=== PATIENT | male | born 1960 | race Caucasian/White ===

== ENCOUNTER 2018-10-17 13:53 | Observation (INO) | payer MEDICAID, SELFPAY ==
[2018-10-17] VITALS (7 sets, daily range): BP systolic 115–133; BP diastolic 70–80; PULSE 61–69; RESP 15–18; TEMP 36.5–36.7; O2SAT 94–98; BMI 30.7
--- NOTE | 2018-10-17 15:18 | CT_ITS ---
STUDY: CTA HEAD AND NECK WITH CONTRAST REASON FOR EXAM: Male, 57 years old. Left neck pain and dizziness RADIATION DOSAGE (If Supplied By Facility): CTDIvol = ( 30.09 ) mGy, DLP = ( 1589.89 ) mGycm TECHNIQUE: CT angiography was performed with a multi-detector CT scanner. Data acquisition was obtained from the skull base through the vertex following intravenous administration of 100 IV Isovue 370. MIP images were reconstructed from the axial data set. Post-processing of the angiographic images was performed, with multiplanar reformation and 3D reconstruction. Individualized dose optimization techniques were used for this CT. COMPARISON: No relevant priors. FINDINGS: Normal bilateral petrous carotid arteries. Normal right cavernous carotid artery with a normal supraclinoid bifurcation. Normal left cavernous carotid artery with a normal supraclinoid bifurcation. Normal right A1 segments of the anterior cerebral artery. Nonvisualized left A1 segments of the anterior cerebral artery possibly normal variant. Normal intact anterior communicating artery (ACOM). Normal bilateral A2 segments of the anterior cerebral arteries. Normal right M1 and M2 segments of the middle cerebral arteries, with a normal M1 bifurcation. Normal left M1 and M2 segments of the middle cerebral arteries, with a normal M1 bifurcation. Normal right posterior communicating artery (PCOM). Left posterior communicating artery not visualized consistent with normal variant Normal bilateral vertebral arteries. Normal basilar artery with a normal basilar bifurcation. The visualized bilateral superior cerebellar (SCA) arteries are normal. Normal bilateral P1, P2 and visualized P3 segments of the posterior cerebral arteries. There is no demonstrated aneurysm of the [place] of [place]. There is no demonstrated abnormality of the visualized brain. AORTIC ARCH: Normal visualized aortic arch. Normal origins of the brachiocephalic, left common carotid, and left subclavian arteries. RIGHT CAROTID ARTERIES: Normal right common carotid artery (CCA). Normal right common carotid bulb. Normal origin of the right internal carotid (ICA) artery without a hemodynamically significant stenosis. Normal visualized cervical portion of the right internal carotid artery. Normal origin of the right external carotid artery (ECA). LEFT CAROTID ARTERIES: Normal left common carotid artery (CCA). Normal left common carotid bulb. Normal origin of the left internal carotid (ICA) artery without a hemodynamically significant stenosis. Normal visualized cervical portion of the left internal carotid artery. Normal origin of the left external carotid artery (ECA). VERTEBRAL ARTERIES: Normal bilateral vertebral arteries. CT/CTA Head AND Neck W/ Contrast IMPRESSION: Normal CTA Head and neck with contrast. Electronically Signed: Eladio Lau MD at 16:53 EDT , Service support ,
--- NOTE | 2018-10-17 15:18 | EKG12_ITS ---
Test Reason : NEURO SYM Blood Pressure : / mmHG Vent. Rate : 060 BPM Atrial Rate : 060 BPM P-R Int : 100 ms QRS Dur : 078 ms QT Int : 382 ms P-R-T Axes : 034 042 050 degrees QTc Int : 382 ms Sinus rhythm with short DC Otherwise normal ECG Confirmed by SHAHAB SILVA, KRISTIN ([id number]), metal tile setter ORESTES RETANA ([id number]) on 10/19/2018 1:37:07 PM Referred By: MATTHEW/MALU Confirmed By:KRISTIN GUDINO MD
--- NOTE | 2018-10-17 15:21 | ED.DCSUM_ITS ---
- ER Visit Summary Date of Service: 10/17/18 Chief Complaint: Dizziness History of Present Illness: The patient is a 57 M with dizziness that started earlier today while he was driving. He felt like things were out of focus. He attributed it to the rain, but when he went home, his symptoms persisted. He was also complaining of some left side neck pain. These are new symptoms for him. He went to urgent care. They felt that he had an irregular heartbeat which is also new, and they referred him to the ED. The patient works with plaster and works on ceilings. Physical Examination: Afebrile and vital signs unremarkable. Alert and oriented. No acute distress. Sitting comfortably. HEENT exam unremarkable. Cranial nerves grossly intact. Heart regular rate and rhythm. Lungs clear. Skin appears normal. Moves all extremities. Good strength and sensation. Normal cerebellar testing, NIH stroke scale is 0. Test Results: EKG, CT brain, CTA head and neck, chest x-ray, labs pending. Emergency Department Course and Treatment: Patient symptoms have currently subsided. NIH stroke scale is 0. There is concern for stroke or vascular or cardiac pathology. Work-up as above. He has an NIH of 0 and there is no indication for team or TPA at this point. Will monitor. EKG showed sinus rhythm. He had no dysrhythmias here. Troponin was normal. CTA head and neck showed no acute abnormalities. Chest x-ray normal. CBC, BMP, coags unremarkable. Patient had no new or worsening symptoms. He was discussed with the hospitalist and will be observed for further care. Treatment Plan: As above Disposition: Observation PCU Impression: 1. Dizziness This note was generated with [employer] dictation software. It may contain incorrect words, spelling, and punctuation that were not noted in review of the chart prior to signing ED Disposition - Plan for ED Patient: Referrals: Ellie Huddleston MD [STAFF PHYSICIAN] -
--- NOTE | 2018-10-17 15:31 | RAD_ITS ---
STUDY: X-RAY CHEST REASON FOR EXAM: Male, 57 years old. Dizziness and neck pain TECHNIQUE: 2 AP portable views COMPARISON: 2015 FINDINGS: The lungs are clear and expanded. There is no demonstrated pleural abnormality. Normal size heart. Normal mediastinum and brittni. Normal visualized pulmonary arteries. Normal visualized aortic arch and descending thoracic aorta. Normal visualized thoracic spine. Normal visualized ribs, clavicles, and shoulders. There is no demonstrated abnormality of the visualized soft tissue structures of the upper abdomen. RAD/Chest 1 View IMPRESSION: Normal x-ray examination of the chest. Electronically Signed: Iftikhar Orr MD at 15:45 EDT , Service support ,
[2018-10-17 15:41] LABS: Absolute Lymphocyte Count 2.31 X10^3/uL (0.83-4.51); Absolute Neutrophil Count 2.9 X10^3/uL (2.0-7.7); Basophil# 0.03 X10^3/uL; Basophil% 0.5 % (0-1); Eosinophil# 0.13 X10^3/uL; Eosinophils% 2.2 % (0-5); Hematocrit 44.8 % (40-54); Hemoglobin 15.1 g/dL (13.0-16.5); Lymphocyte # 2.31 X10^3/ul (4.0); Lymphocyte % 38.8 % (19-41); Mean Corp Hgb Conc 33.7 g/dL (32-36); Mean Corpuscular Hgb 29.4 pg (27.0-32.0); Mean Corpuscular Volume 87.3 fL (80-94); Mean Platelet Vol. 10.9 fl (6.2-12.0); Monocyte# 0.59 X10^3/uL; Monocyte% 9.9 % (0-10); NRBC Flagged by Analyzer 0 % (0-5); Neutrophil # 2.89 X10^3/uL (2.7-7.7); Neutrophil % 48.4 % (47-70); Platelet Count 216 K/mm3 (150-450); RBC Distribution Width CV 12.7 % (11.6-14.6); RBC Distribution Width SD 40.6 fl (35.1-43.9); Red Blood Count 5.13 M/mm3 (4.6-6.2)
[2018-10-17 15:47] LABS: Prothrombin Time (Protime)PT. 13.4 SECONDS (11.7-14.9)
[2018-10-17 15:57] LABS: Anion Gap 8 (5-15); BUN 18 mg/dL (7-18); BUN/Creat Ratio 16.5 RATIO (10-20); Calcium,Total 9.1 mg/dL (8.5-10.1); Chloride 106 mmol/L (98-107); Creatinine, Serum 1.09 mg/dL (0.70-1.30); EST Glomerular Filtration Rate 74 mL/min (>60); Est Glom Filt Rate - Afr Amer 90 mL/min (>60); Glucose 88 mg/dL (74-106); Potassium 4.3 mmol/L (3.5-5.1); Sodium Level 141 mmol/L (136-145)
--- NOTE | 2018-10-17 17:19 | NURSING ---
DR SARI RODRIGUEZ
--- NOTE | 2018-10-17 17:25 | NURSING ---
PCU OBS DIZZINESS ASHELFAH
--- NOTE | 2018-10-17 17:28 | PCM.HP.STD ---
Problem List (1) Dizziness Status: Acute (2) Blurry vision, bilateral Status: Acute (3) GERD (gastroesophageal reflux disease) Status: Chronic History of Present Illness Date of Admission: 10/17/18 Chief Complaint: Dizziness, blurry vision. The patient is a 57 year old M with no significant past medical history presented to the emergency room because of dizziness and blurry vision. His symptoms started around 11 AM this morning when he was driving with blurry vision involving both eyes, things were not clear, initially resolved with blinking, associated with dizziness and headache, symptoms was intermittent, comes and goes and without aggravating or relieving factors. The whole episode lasted for about couple of hours with intermittent blurry vision and dizziness. Later, he complained of neck pain, left-sided, dull aching pain, nonradiating and resolved now. He denied chest pain, shortness of breath, palpitation, syncope or presyncope. He denied facial numbness or tingling. He denied slurred speech. He denied focal arm or leg weakness. He went to urgent care and he was recommended to come to the emergency department. He was informed at the urgent care that he has regular heartbeats. No EKG was done at that time. In the emergency department, his vital signs were stable. His NIH stroke scale was 0. His routine blood work was unremarkable. EKG revealed normal sinus rhythm, normal NC interval, normal QRS, normal QTC, no acute ischemic changes or cardiac arrhythmias. Troponin is negative. Chest x-ray showed no acute findings. CTA of the head and neck showed no evidence of hemodynamically significant vascular disease or stenosis. He is being admitted for blurry vision/dizziness for evaluation. Past Medical History Past Medical History (Chronic Problems): Chronic Problems GERD (gastroesophageal reflux disease) (Chronic) Allergies No Known Allergies Allergy (Verified 10/17/18 15:54) Home Medications: Ambulatory Orders Medication Instructions Recorded NK 10/17/18 Surgical History: no surgical history Psychiatric History: No pertinent psych hx Lives: Spouse/ Significant Other Smoking Status: Current every day smoker Tobacco Use: Cigarettes Alcohol: None Drugs: None - *Family History Maternal History Items: - - No family history of hypertension, diabetes, stroke or CAD. Paternal History Items: No pertinent history Review of Systems Constitutional: Denies: Anorexia, Chills, Fever, Weakness Eyes: Reports: Blurred vision. Denies: Double vision, Drainage, Redness HEENT: Reports: Ear Pain, Head Aches. Denies: Difficulty Hearing, Eye Pain, Nasal Congestion, Sore Throat Cardiovascular: Reports: Light Headedness. Denies: Chest Pain, Chest Pressure, Edema, Heaviness, Palpitations, Syncope Respiratory: Denies: Cough, Pleuritic Pain, Shortness of Breath, Sputum production, Wheezing Gastrointestinal: Denies: Abdominal Pain, Constipation, Diarrhea, Nausea, Vomiting Genitourinary: Denies: Dysuria, Frequency, Hematuria Musculoskeletal: Denies: Arm Pain, Back Pain, Foot Pain Skin: Denies: Dryness, Rash Neurological: Reports: Headaches. Denies: Balance problems, Double vision, Change in Speech, Slurred speech, Confusion, Incoordination, Numbness, Tingling Psychiatric: Denies: Anxiety, Depression Endocrine: Denies: Change in Body Habitus, Polydipsia, Polyuria VTE Information - Inpt Only VTE Present on Admission: No VTE Mechan Device Prophylaxis: None VTE Pharm Prophylaxis ordered?: No Patient Problems: Active and Suspected Problems Dizziness (Acute) Blurry vision, bilateral (Acute) - Physical Exam General: Alert, Oriented x3, Cooperative, No apparent distress HEENT: Atraumatic, PERRLA, EOMI, Normocephalic Oral: Moist Mucosa, No Gingival or Mucosal Lesions/ Ulcerations Neck: Supple, No JVD, Negative Carotid Bruits, Trachea Midline, Thyroid Normal Size and Texture Lungs: Clear to auscultation, Normal air movement, No rhonchi, No wheeze, No rales Cardiovascular: Regular rate, Regular Rhythm, Normal S1, Normal S2, PMI Normal Abdomen: Bowel Sounds Present, Soft, Non Tender, Non-Distended, No Hepato-splenomegaly Extremities: No clubbing, No cyanosis, No edema Skin: No rashes, No breakdown Lymphatic: No Cervical, Supraclavicular, or Inguinal Adenopathy Neurological: Cranial nerves II-XII grossly intact, Motor Exam 5/5 strength throughout Psych/Mental Status: Normal Affect, Appropriate, Alert and oriented to time, place, person, mood and affect Vital Signs Temp Pulse Resp BP Pulse Ox 98.1 F 69 17 133/75 H 97 10/17/18 13:54 10/17/18 13:54 10/17/18 15:53 10/17/18 15:53 10/17/18 15:53 Oxygen Delivery Method Room Air Weight: 220 lb Body Mass Index (BMI) 30.7 Laboratory Tests Past 24 Hrs 10/17/18 10/17/18 10/17/18 13:30 13:30 13:30 WBC 6.0 RBC 5.13 Hgb 15.1 Hct 44.8 MCV 87.3 MCH 29.4 MCHC 33.7 RDW Std Deviation 40.6 RDW Coeff of [place] 12.7 Plt Count 216 MPV 10.9 Immature Gran % (Auto) 0.200 Neut % (Auto) 48.4 Lymph % (Auto) 38.8 [place] % (Auto) 9.9 Eos % (Auto) 2.2 Baso % (Auto) 0.5 Absolute Neuts (auto) 2.9 Absolute Lymphs (auto) 2.31 Absolute Nucleated RBC 0.00 Nucleated RBC % 0 PT 13.4 INR 1.0 APTT 32.0 Sodium 141 Potassium 4.3 Chloride 106 Carbon Dioxide 27.0 Anion Gap 8 BUN 18 Creatinine 1.09 Estim Creat Clear Calc 80.60 Est GFR (MDRD) Af Amer 90 Est GFR (MDRD) Non-Af 74 BUN/Creatinine Ratio 16.5 Glucose 88 Calcium 9.1 Troponin I < 0.015 Clinical Impression(s) from Imaging Studies Head/Neck CTA 10/17/18 15:18 IMPRESSION: Normal CTA Head and neck with contrast. Electronically Signed: Eladio Lau MD at 16:53 EDT , Service support , Chest X-Ray 10/17/18 15:31 IMPRESSION: Normal x-ray examination of the chest. Electronically Signed: Iftikhar Orr MD at 15:45 EDT , Service support , Assessment/Plan All Active Problems Dizziness (Acute) Blurry vision, bilateral (Acute) This is a 57 years old male patient presented to the emergency room because of dizziness and blurry vision and he is being admitted for evaluation for probable TIA versus acute stroke. #1 blurry vision/dizziness: Symptoms are not typical for TIA or stroke. Symptoms has been intermittent and recurrent, associated with headache. Risk factors are only smoking. No family history of stroke. His vital signs are stable. Routine blood work was unremarkable. CTA head and neck was unremarkable as above. EKG reviewed, unremarkable. His NIH stroke scale was 0. No focal deficit on physical exam. Plan: Admit to PCU for observation, cardiac monitoring, NIH stroke scale, start baby aspirin, fasting lipid profile, MRI brain, 2D echocardiogram. #2 GERD: Patient completed 1 week of omeprazole which was started recently. At this time, he denies any more symptoms. #3 DVT prophylaxis: Low risk patient, no prophylaxis indicated. This note was generated with [employer] dictation software. It may contain incorrect words, spelling, and punctuation that were not noted in checking the note before signing. Code Visit OBSV E&M: 81614 Initial observation care L2
--- NOTE | 2018-10-17 17:33 | NURSING ---
112 DIZZINESS, BLURRY VISION ASHELFAH
--- NOTE | 2018-10-17 18:15 | ECHOCS_ITS ---
Reason For Study: TIA/CVA Procedure This was a 2D Doppler, Color Flow transthoracic echocardiogram. Exam performed portable in patient room. Left Ventricle Normal LV size. Left ventricular systolic function is normal. The estimated ejection fraction is 60 %. Stage 1 diastolic dysfunction. No regional wall motion abnormalities noted. Right Ventricle Normal RV size. Normal systolic function. Atria Normal left atrium. Normal right atrium. Bubble contrast study negative for right to left interatrial shunt. Mitral Valve Normal mitral valve. Tricuspid Valve Normal tricuspid valve. Aortic Valve The aortic valve is not well visualized. Pulmonic Valve Normal pulmonic valve. Great Vessels Normal aortic root. The pulmonary artery is normal size. Normal inferior vena cava. Pericardium/Pleural No pericardial effusion. Medication Performed a rapid injection of agitated mix of 9 cc saline and 1cc air to assess for atrial septal defect. Diluted definity 4ml given slow IV push to enhance endocardial definition. MMode/2D Measurements & Calculations LVIDd: 5.2 cm IVSd: 0.83 cm Ao root diam: 3.7 cm LVIDs: 3.4 cm LVPWd: 0.93 cm RVDd: 3.6 cm FS: 33.4 % LAV(MOD-bp): 43.4 ml LVAd ap4: 33.0 cm2 SV(MOD-sp4): 63.1 ml LAV(MOD-bp) Indexed: 19.8 ml/m2 EDV(MOD-sp4): 112.6 ml LAV(MOD-sp2): 59.7 ml EDV(sp4-el): 118.4 ml LAV(MOD-sp4): 27.2 ml LVAs ap4: 19.9 cm2 ESV(MOD-sp4): 49.5 ml ESV(sp4-el): 50.0 ml EF(MOD-sp4): 56.0 % EF(sp4-el): 57.8 % SV(sp4-el): 68.4 ml LA A4 area: 12.3 cm2 LA dimension(2D): 3.5 cm RA A4 area: 14.3 cm2 Time Measurements MV dec time: 0.24 sec Doppler Measurements & Calculations MV E max marvin: 61.2 cm/sec Lat Peak E' Marvin: 12.2 cm/sec Med Peak E' Marvin: 9.4 cm/sec MV A max marvin: 70.1 cm/sec E/E' lat: 5.0 E/E' med: 6.5 MV E/A: 0.87 Ao V2 max: 112.8 cm/sec LV V1 max: 98.4 cm/sec PA V2 max: 81.6 cm/sec Ao max P.1 mmHg LV V1 max P.9 mmHg Interpretation Summary Normal LV size. Left ventricular systolic function is normal. The estimated ejection fraction is 60 %. Stage 1 diastolic dysfunction. Contrast injection was performed. Ordering Physician: Yessenia Whaley Referring Physician: BARRIE GOODMAN Performed By: María Jacobsen RDCS
--- NOTE | 2018-10-17 18:15 | MRI_ITS ---
HISTORY: Dizziness. Left neck pain. Visual changes. Headache.VERTIGOdizzy, blurred vision , puentes, left neck pain today EXAMINATION: MR Brain W/O Contrast TECHNIQUE: Multiplanar and multisequence MR images of the brain were obtained without gadolinium. IV Contrast dosage and agent: None. COMPARISON: CTA and CT head seen date. FINDINGS: PARANASAL SINUSES AND MASTOID AIR CELLS: Mild mucosal thickening bilateral ethmoid air cells and left maxillary sinus. CALVARIUM: Unremarkable. INTRACRANIAL HEMORRHAGE: No evidence of intracranial hemorrhage. BRAIN PARENCHYMA: No acute infarct. Cerebrum, cerebellum and brainstem are unremarkable. Normal sella turcica, pituitary gland, infundibular stalk, optic chiasm and hypothalamus. The internal auditory canals are patent. No mass effect or midline shift. CSF SPACES: Appropriate for age. There is no hydrocephalus. Patent basal cisterns. VASCULAR SYSTEM: Normal flow voids in the major intracranial circulation. ORBITS: Both globes, extraocular muscles, optic nerves and retrobulbar fat appear unremarkable. MRI/Brain without Contrast IMPRESSION: Negative MRI Brain without contrast. at 2245 Reported and signed by: Fortunato Carpenter MD Electronically Signed: Fortunato Carpenter, at 22:44 EDT Tel , Service support ,
[2018-10-17] MEDS: 0.9% Normal Saline 1,000 ML 100 ML IV (19:01)
[2018-10-18 02:50] VITALS: BP 110/61; PULSE 66; RESP 16; TEMP 36.6; O2SAT 94
[2018-10-18 03:06] VITALS: PULSE 62
[2018-10-18 06:00] VITALS: BP 109/62; PULSE 59; RESP 16; TEMP 36.5; O2SAT 95
[2018-10-18 06:25] LABS: Cholesterol 168 mg/dL (200); High Density Lipoprotein 33 mg/dL; Triglycerides 201 mg/dL; Very Low Density Lipoprotein 40 mg/dL (5-40)
[2018-10-18 06:48] VITALS: PULSE 56
[2018-10-18 07:40] VITALS: O2SAT 95
--- NOTE | 2018-10-18 09:02 | DCINST_ITS ---
- Discharge Diagnoses Current Active Problems: Current Active and Chronic Problems Dizziness (Acute) Blurry vision, bilateral (Acute) GERD (gastroesophageal reflux disease) (Chronic) You will use the following diet at home:: Regular Your food should be the consistency of: Regular Discharge Activity: Return to Normal Activity Weight Bearing Status: Full weight bearing Call your doctor if you observe: Fever of 101 or Higher, Shortness of breath, Dizziness, Fainting spells, Chest pain, Increased palpitations (irregular heartbeat), Uncontrolled pain Allergies/Adverse Reactions: Allergies No Known Allergies Allergy (Verified 10/17/18 15:54) Medications to take at Discharge NK 10/17/18 Primary Care Physician: Ellie Huddleston MD [STAFF PHYSICIAN] - Please follow up with your Primary Care Physician in: 2 WEEKS. Test Results: Test results from this visit will be discussed in further detail at your follow- up appointment, if applicable.
--- NOTE | 2018-10-18 12:15 | PCM.DC.SUM ---
Discharge Date and Diagnosis Date of Admission: 10/17/18 Date of Discharge: 10/18/18 - Primary Discharge Diagnosis Blurry vision/dizziness, acute stroke ruled out, was not typical for TIA. - Secondary Discharge Diagnosis Chronic Problems GERD (gastroesophageal reflux disease) (Chronic) Hospital Course and Treatment Imaging Results: Clinical Impression(s) from Imaging Studies Head/Neck CTA 10/17/18 15:18 IMPRESSION: Normal CTA Head and neck with contrast. Electronically Signed: Eladio Lau MD at 16:53 EDT , Service support , Chest X-Ray 10/17/18 15:31 IMPRESSION: Normal x-ray examination of the chest. Electronically Signed: Iftikhar Orr MD at 15:45 EDT , Service support , Brain MRI 10/17/18 18:15 IMPRESSION: Negative MRI Brain without contrast. at 2245 Reported and signed by: Fortunato Carpenter MD Electronically Signed: Fortunato Carpenter, at 22:44 EDT Tel , Service support , Operations: None Procedures: 2-D Echocardiogram, EKG Summary of Care Provided: Patient seen and examined on the day of discharge and appeared to be stable to be discharged home. He denies any more blurry vision or dizziness. He has been ambulating without restrictions. His vital signs are stable. The patient is a 57 year old M admitted because of symptoms of dizziness and blurry vision for evaluation. His symptoms was not typical for TIA or stroke. It was concerning because it was intermittent and recurrent more than 3-4 times yesterday before admission. CTA of the neck done on admission and revealed no evidence of hemodynamically significant vascular disease or stenosis, no infarct or hemorrhage. Patient was admitted to PCU for observation, underwent NIH stroke scale monitoring and was started on baby aspirin. His vital signs been stable throughout admission. His routine blood work was unremarkable. His EKG revealed normal sinus rhythm without evidence of cardiac arrhythmias or acute ischemic changes. MRI brain done and again showed no acute infarct or hemorrhage. Chest x-ray showed no acute findings. 2D echocardiogram done and revealed normal LV size and function, ejection fraction of 60%, stage I diastolic dysfunction.. Patient discharged home in a stable medical condition, discharged home on no medications, recommended follow-up with PCP in 2 weeks. - Physical Exam General: Alert, Oriented x3, Cooperative, No apparent distress HEENT: Atraumatic, PERRLA, EOMI, Normocephalic Oral: Moist Mucosa, No Gingival or Mucosal Lesions/ Ulcerations Neck: Supple, No JVD, Negative Carotid Bruits, Trachea Midline, Thyroid Normal Size and Texture Lungs: Clear to auscultation, Normal air movement, No rhonchi, No wheeze, No rales Cardiovascular: Regular rate, Regular Rhythm, Normal S1, Normal S2, PMI Normal Abdomen: Bowel Sounds Present, Soft, Non Tender, Non-Distended, No Hepato-splenomegaly Extremities: No clubbing, No cyanosis, No edema Skin: No rashes, No breakdown Lymphatic: No Cervical, Supraclavicular, or Inguinal Adenopathy Neurological: Cranial nerves II-XII grossly intact, Motor Exam 5/5 strength throughout Psych/Mental Status: Normal Affect, Appropriate Vital Signs Temp Pulse Resp BP Pulse Ox 97.7 F L 56 L 16 109/62 95 10/18/18 06:00 10/18/18 06:48 10/18/18 06:00 10/18/18 06:00 10/18/18 07:40 Oxygen Delivery Method Room Air Weight: 219 lb 12.8 oz Body Mass Index (BMI) 30.7 Finger Stick Blood Glucose 88 Intake and Output for Last 24 Hours 10/16/18 10/17/18 10/18/18 23:59 23:59 23:59 Intake Total 352 / 352 150 / 150 Balance 352 / 352 150 / 150 Laboratory Tests Past 24 Hrs 10/17/18 10/17/18 10/17/18 13:30 13:30 13:30 WBC 6.0 RBC 5.13 Hgb 15.1 Hct 44.8 MCV 87.3 MCH 29.4 MCHC 33.7 RDW Std Deviation 40.6 RDW Coeff of [place] 12.7 Plt Count 216 MPV 10.9 Immature Gran % (Auto) 0.200 Neut % (Auto) 48.4 Lymph % (Auto) 38.8 [place] % (Auto) 9.9 Eos % (Auto) 2.2 Baso % (Auto) 0.5 Absolute Neuts (auto) 2.9 Absolute Lymphs (auto) 2.31 Absolute Nucleated RBC 0.00 Nucleated RBC % 0 PT 13.4 INR 1.0 APTT 32.0 Sodium 141 Potassium 4.3 Chloride 106 Carbon Dioxide 27.0 Anion Gap 8 BUN 18 Creatinine 1.09 Estim Creat Clear Calc 80.60 Est GFR (MDRD) Af Amer 90 Est GFR (MDRD) Non-Af 74 BUN/Creatinine Ratio 16.5 Glucose 88 Calcium 9.1 Troponin I < 0.015 Triglycerides Cholesterol LDL Cholesterol VLDL Cholesterol HDL Cholesterol 10/18/18 05:40 WBC RBC Hgb Hct MCV MCH MCHC RDW Std Deviation RDW Coeff of [place] Plt Count MPV Immature Gran % (Auto) Neut % (Auto) Lymph % (Auto) [place] % (Auto) Eos % (Auto) Baso % (Auto) Absolute Neuts (auto) Absolute Lymphs (auto) Absolute Nucleated RBC Nucleated RBC % PT INR APTT Sodium Potassium Chloride Carbon Dioxide Anion Gap BUN Creatinine Estim Creat Clear Calc Est GFR (MDRD) Af Amer Est GFR (MDRD) Non-Af BUN/Creatinine Ratio Glucose Calcium Troponin I Triglycerides 201 H Cholesterol 168 LDL Cholesterol 95 VLDL Cholesterol 40 HDL Cholesterol 33 L Discharge Activity: Return to Normal Activity Weight Bearing Status: Full weight bearing Call your doctor if you observe: Fever of 101 or Higher, Shortness of breath, Dizziness, Fainting spells, Chest pain, Increased palpitations (irregular heartbeat), Uncontrolled pain Home Medications: Medications to take at Discharge NK 10/17/18 Primary Care Physician: Ellie Huddleston MD [STAFF PHYSICIAN] - Please follow up with your Primary Care Physician in: 2 WEEKS. Disposition: Home Minutes spent on discharge:: 26 Patient Condition:: Stable Medical Necessity - Tobacco Use Smoking Status: Current every day smoker Tobacco Use: Cigarettes Meaningful Use Info Meaningful Use Diagnoses (Choose all that apply): None applicable Code Visit OBSV E&M: 71752 Observation care discharge
== END 2018-10-18 09:02 | disposition home or self-care (01) ==
LOC: ED 15:29 → PCU 17:36
PROVIDERS: Admitting Provider Hospitalist; Emergency Provider Emergency Medicine; Family Provider Family Medicine; PCP Family Medicine; Visit Provider Hospitalist
DX: R42 Dizziness and giddiness (principal); K21.9 Gastro-esophageal reflux disease without esophagitis; M54.2 Cervicalgia; R29.700 NIHSS score 0; H53.8 Other visual disturbances; F17.210 Nicotine dependence, cigarettes, uncomplicated
CPT/HCPCS: 36415; 70496; 70498; 70551; 71045; 80048; 80061; 84484; 85025; 85610; 85730; 93005; 93306; 99218; 99285; 99406; J7030; Q9957; Q9967; A4216; C8929; G0378